=== PATIENT | female | born 1965 | race Caucasian/White ===

== ENCOUNTER 2019-01-18 17:33 | Emergency (ER) | payer OTHER ==
[~2019-01-18] VITALS: Ht 172.7 cm; Wt 109.8 kg
[~2019-01-18 17:33] MED LIST: BACTRIM DS TAB1 EACH PO; IBUPROFEN 800800 M1 PO; KEFLEX500 MG PO; LOPRESSOR50 PO; NORCO 5-325 TA1 EACH PO; TRAMADOL 50 MG50 MG PO
[2019-01-18] MEDS ORDERED: NEURONTIN 300300 M1 PO (17:44)
[2019-01-18] MEDS ORDERED: KLOR-CON 1010 MEQ PO (17:44)
[2019-01-18] MEDS ORDERED: LASIX 20 MG TAB20 MG PO (17:44)
[2019-01-18 19:32] LABS: ABSOLUTE BASOPHILS 0.1 thou/uL (0.0-0.2); ABSOLUTE EOSINOPHILS 0.2 thou/uL (0.0-0.7); ABSOLUTE LYMPHOCYTES 2.7 thou/uL (0.8-5.3); ABSOLUTE MONOCYTES 1.3 thou/uL (0.0-1.2); ABSOLUTE NEUTROPHILS 9.4 thou/uL (1.6-8.1); BASOPHILS 0.9 %; EOSINOPHILS 1.7 %; HEMATOCRIT 44.8 % (37.0-47.0); HEMOGLOBIN 15.1 gm/dL (12.0-15.0); LYMPHOCYTES 19.4 %; MCH 31.9 pg (26.0-34.0); MCHC 33.8 g/dL (28.0-37.0); MCV 94.4 fL (80.0-100.0); MONOCYTES 9.7 %; NUCLEATED RBCS 0 /100WBC; PLATELET COUNT* 225 thou/uL (150-400); POLYS 68.3 %; RBC 4.75 mil/uL (4.20-5.00); RDW-CV 13.2 % (10.5-14.5); WBC 13.7 thou/uL (4.0-11.0)
[2019-01-18 19:41] LABS: CREATININE 1.2 mg/dL (0.6-1.3); POTASSIUM 4.1 mmol/L (3.5-5.1)
[2019-01-18 19:46] LABS: ALBUMIN 3.6 g/dL (3.4-5.0); TOTAL BILIRUBIN 0.4 mg/dL (<0.1-1.0); TOTAL PROTEIN 7.6 g/dL (6.4-8.2)
[2019-01-18] MEDS ORDERED: CLEOCIN HCL150 MG PO (21:41)
[2019-01-18] MEDS ORDERED: NORCO 5-325 TA1 EAC1 PO (21:41)
[2019-01-18 21:56] VITALS: BP 129/67
== END 2019-01-18 21:59 | disposition home or self-care (01) ==
LOC: M.ERS 17:33
PROVIDERS: Physician Assistant
DX: R22.1 Localized swelling, mass and lump, neck (principal); M41.9 Scoliosis, unspecified; E11.9 Type 2 diabetes mellitus without complications; Z90.710 Acquired absence of both cervix and uterus; Z88.0 Allergy status to penicillin; Z88.5 Allergy status to narcotic agent; Z88.6 Allergy status to analgesic agent